=== PATIENT | female | born 1945 | race Caucasian/White ===

== ENCOUNTER 2019-06-19 16:33 | Observation (INO) ==
[2019-06-19] MEDS ORDERED: Gabapentin 300 MG CAPSULE PO ONE (19:55)
[2019-06-19] MEDS ORDERED: *HR* OxyCODONE Immed Rel 15 MG TABLET PO ONE (19:56)
[2019-06-19] MEDS ORDERED: Albuterol 2.5 MG/3 ML NEBULIZER IH PRN (20:33)
[2019-06-19] MEDS ORDERED: OXYCODONE HCL PO PRN (20:33)
[2019-06-19] MEDS ORDERED: ALPRAZolam 0.5 MG TABLET PO PRN (20:33)
[2019-06-19] MEDS ORDERED: Melatonin 3 MG TABLET PO SCH (21:00)
[2019-06-19] MEDS ORDERED: Furosemide 20 MG TABLET PO SCH (21:00)
[2019-06-19 21:22] LABS: Basophils % 0.5 %; Hematocrit 28.2 % (35.3-44.9); Immature Granulocytes % 0.3 % (0-4)
[2019-06-19 21:23] LABS: Basophils # 0.1 K/mcL (0.0-0.2); Eosinophils # 0.5 K/mcL (0.0-0.6); Eosinophils % 4.8 %; Hemoglobin 7.9 g/dL (11.5-15.4); Lymphocytes # 3.4 K/mcL (0.6-4.6); Lymphocytes % 35.2 %; Mean Corpuscular Hemoglobin 21.2 pg (28.0-33.3); Mean Corpuscular Volume 75.6 fL (83.0-100.0); Monocytes # 0.8 K/mcL (0.0-1.3); Monocytes % 7.8 %; Platelet Count 329 K/mcL (140-400); Red Blood Count 3.73 M/mcL (3.82-4.97); Red Cell Distribution Width 18.7 % (11.5-14.5); Segmented Neutrophils % 51.4 %; White Blood Count 9.7 K/mcL (4.3-11.1)
[2019-06-19 21:28] LABS: INR 1.1; Prothrombin Time 12.5 Seconds (9.4-12.1)
[2019-06-19 21:36] LABS: Anisocytosis 1+ (Not Present); Hypochromasia Present (Not Present); Platelet Estimate Normal (Normal)
[2019-06-19 21:45] LABS: Heparin anti-factor XA UFH 1.97 IU/mL (0.30-0.70)
[2019-06-19 21:54] LABS: Activated Partial Thrombo Time > 360.0 Seconds (26.0-36.0)
[2019-06-19 21:59] LABS: BUN/Creatinine Ratio 17 (6-26); Blood Urea Nitrogen 15 mg/dL (8-23); Carbon Dioxide 24 mEq/L (23-29); Chloride 106 mEq/L (98-107); Glucose 100 mg/dL (70-105); Osmolality,Calculated 291 (280-300); Potassium 4.1 mEq/L (3.5-5.1); Sodium 140 mEq/L (136-145); eGFR For African Americans > 60 (> 60); eGFR For Non-African Americans > 60 (> 60)
[2019-06-19] MEDS ORDERED: ARIPiprazole 10 MG TABLET PO SCH (23:00)
[2019-06-19] MEDS ORDERED: Aspirin 81 MG TAB.CHEW PO SCH (23:15)
[2019-06-19] MEDS ORDERED: Topiramate 100 MG TABLET PO SCH (23:30)
[2019-06-20] MEDS: FLUoxetine 20 MG CAPSULE PO SCH ×2 (00:21→17:20)
[2019-06-20] MEDS: Famotidine 20 MG TABLET PO SCH ×2 (00:22→09:23)
[2019-06-20] MEDS: tiZANidine 4 MG TABLET PO SCH ×3 (00:22→13:43)
[2019-06-20] MEDS ORDERED: Acetaminophen 325 MG TABLET PO PRN (00:36)
[2019-06-20] MEDS ORDERED: traMADol 50 MG TABLET PO PRN (00:36)
[2019-06-20] MEDS: *HR* OxyCODONE Immed Rel 5 MG TABLET PO PRN ×3 (01:56→13:43)
[2019-06-20 04:32] LABS: Hematocrit 25.9 % (35.3-44.9); Hemoglobin 7.2 g/dL (11.5-15.4)
[2019-06-20 04:43] LABS: Activated Partial Thrombo Time 29.6 Seconds (26.0-36.0)
[2019-06-20 04:44] LABS: Heparin anti-factor XA UFH 0.03 IU/mL (0.30-0.70)
[2019-06-20] MEDS ORDERED: *HR* Heparin 5,000 UNIT/ML VIAL IVP PRN ×2 (06:00)
[2019-06-20] MEDS ORDERED: Heparin 25,000 UNIT/250 ML D5W 25,000 UNIT/250 ML IV.SOLN IVC SCH (06:00)
[2019-06-20 08:46] LABS: Hematocrit 27.4 % (35.3-44.9); Hemoglobin 7.6 g/dL (11.5-15.4)
[2019-06-20 09:11] LABS: % Iron Saturation 4 % (15-50); Iron 15 mcg/dL (50-170); Transferrin 269 mg/dL (203-362)
[2019-06-20] MEDS: Gabapentin 100 MG CAPSULE PO SCH ×2 (09:23→13:42)
[2019-06-20 09:32] LABS: Ferritin < 8 ng/mL (10-120)
[2019-06-20 09:34] LABS: Folate 6.7 ng/mL (3.0-16.0)
[2019-06-20 14:29] VITALS: BP 107/67
[2019-06-21 09:40] LABS: Homocysteine 14 umol/L (<=10)
[2019-06-22 18:20] LABS: APTT (LE Anticoag) >150 sec (32-48); Diluted Russell Viper Venom 42 sec (33-44); LE APTT D Heparin Neutralized 38 sec (32-48); LE Coag Reptilase Time 19.9 sec (<=21.9); Thrombin Time >150.0 sec (14.7-19.5)
[2019-06-23 15:29] LABS: FACV Specimen WHOLE BLOOD
[2019-06-24 10:33] LABS: Fac V Leiden R506Q Mut Result NEGATIVE
[2019-06-24 17:56] LABS: Prothrombin G20210A Specimen WHOLE BLOOD
[2019-06-25 10:16] LABS: Prothrombin G20210A Mut Result NEGATIVE
[2019-07-05 14:37] LABS: Antiphospholipid IgG High Spec 0 GPL (0-14); Antiphospholipid IgM High Spec 11 MPL (0-14)
== END 2019-06-20 18:51 | disposition critical access hospital (66) ==
LOC: 3ANU → SUATTDRO 18:45
PROVIDERS: ADMIT Internal Medicine; ATTEND Pharmacist